=== PATIENT | female | born 1955 | race Caucasian/White ===

== ENCOUNTER 2017-03-30 06:59 | Day surgery (SDC) | payer OTHER ==
[2017-03-26 14:24] LABS: HEMATOCRIT 38.4 % (36.0-48.0); HEMOGLOBIN 12.7 g/dL (12.0-16.0)
[2017-03-26 14:52] LABS: A/G RATIO 1.2 (0.7-1.9); ALKALINE PHOSPHATASE 259 U/L (45-117); BUN (BLOOD UREA NITROGEN) 13 MG/DL (6-23); CALCIUM, SERUM 11.1 MG/DL (8.5-10.4); CHLORIDE, SERUM 106 MMOL/L (96-112); CO2 (CARBON DIOXIDE) 29 MMOL/L (24-34); CREATININE 0.78 MG/DL (0.55-1.02); GFR AFRICAN AMERICAN 95 ML/MIN (>=60); GFR NON AFRICAN AMERICAN 82 ML/MIN (>=60); GLOBULIN 3.4 G/DL (2.5-4.1); GLUCOSE, SERUM 85 MG/DL (60-99); POTASSIUM, SERUM 4.5 MMOL/L (3.5-5.3); SGOT(AST) 16 U/L (5-40); SGPT(ALT) 25 U/L (5-65); SODIUM, SERUM 138 MMOL/L (135-148); TOTAL BILIRUBIN 0.4 MG/DL (0-1.2); TOTAL PROTEIN 7.4 G/DL (6.0-8.5)
[~2017-03-30] VITALS: Ht 162.6 cm; Wt 88.7 kg
--- NOTE | ~2017-03-30 | OP ---
Record Of Operation [facility] [address] [place]. [address] NAME: PAOLA BYNUM : 55 STATUS : [facility]#: [id number] AGE: 61 ADM/REG DATE : 03/30/17 MR#: [id number] REPORT SERV DATE: 03/30/17 DICTATED BY: JOAO BLUE DATE: 03/30/17 REPORT STATUS : Draft TRANSCRIBED BY: MODL DATE: 03/30/17 DATE OF PROCEDURE: 03/30/2017 PREOPERATIVE DIAGNOSIS: Primary hyperparathyroidism. POSTOPERATIVE DIAGNOSIS: Primary hyperparathyroidism. PROCEDURE: Right superior parathyroidectomy. SURGEON: Joao Blue M.D. RESIDENT SURGEON: Orlando Nettles MD ANESTHESIA: General. COMPLICATIONS: None. ESTIMATED BLOOD LOSS: 5 mL. SPECIMENS: Right superior parathyroid gland. COMPLICATIONS: None. INDICATIONS FOR PROCEDURE: Paola Bynum is a 61-year-old woman who presented with symptoms of hypercalcemia, found to have elevated calcium and PTH level. Sestamibi suggested enlarged right-sided parathyroid gland. Ultrasounds suggest right superior parathyroid gland enlargement. The risks and benefits of the procedure including bleeding, infection, injury to the recurrent laryngeal nerve causing hoarseness, risk of anesthesia, heart attack, stroke, DVT, PE, and risk of hypocalcemia postoperatively were discussed with the patient. She understood and wished to proceed. FINDINGS: There is an enlarged right superior parathyroid gland. Normal-appearing right inferior parathyroid gland and preoperative PTH was 128. Fifteen minutes after removal of the right superior parathyroid gland, the PTH level had dropped to 28. DESCRIPTION OF PROCEDURE: Informed consent was obtained. The patient was taken to the operating room and placed on the operating room table in supine position. General endotracheal anesthesia was induced by anesthesia staff without incident. A time-out was performed verifying the correct patient, positioning, procedure, equipment. A shoulder roll was placed. The neck was extended. The patient was properly padded and secured to the table. She was then placed in modified beach chair position. The neck and upper chest were prepped and draped in sterile fashion. The initial skin crease was identified and a transverse skin incision was made with a knife carried down with electrocautery through the platysma. Subplatysmal flaps were raised superiorly and inferiorly. The strap muscles were in the midline and the right strap muscle was elevated and the thyroid was dissected off it. Right middle thyroid vein was ligated with clips and cut. The right Record Of Operation [facility] [address] [place] [address] NAME: PAOLA BYNUM : 55 STATUS : [facility] PAT#: [id number] AGE: 61 ADM/REG DATE : 03/30/17 MR#: [id number] REPORT SERV DATE: 03/30/17 DICTATED BY: JOAO BLUE DATE: 03/30/17 REPORT STATUS : Draft TRANSCRIBED BY: OSEI DATE: 03/30/17 inferior parathyroid gland was identified, and it appeared normal. Next, the right superior parathyroid gland was identified in the tracheoesophageal groove posteriorly consistent with ultrasound localization. It appeared enlarged and abnormal. The recurrent laryngeal nerve was identified and protected throughout. The right superior parathyroid gland was mobilized on its vascular pedicle. The vascular pedicle was ligated with medium clips and cut, the specimen was passed off the table. PTH was drawn 15 minutes after removal and it dropped from 128.4 down to 28. The wound was inspected, there was good hemostasis. The strap muscles were reapproximated in the midline using 3-0 running Vicryl. The platysma was closed with interrupted 4-0 Vicryl. Skin closed with running 4-0 Monocryl. Sterile dressings of Telfa and paper tape were placed. The patient tolerated the procedure and was taken to the postanesthesia care in satisfactory condition. DICTATED BY: MD HARISH Bashir/OSEI Joao Blue M.D. / [id number] CC: Joao Blue M.D.
[~2017-03-30 06:59] MED LIST: *DENIES
[2017-03-30 11:51] LABS: PTH (INTRAOPERATIVE) 128.4 PG/ML (10.0-65.0); PTH TAT 0 Hrs 21 Mins
[2017-03-30 13:13] LABS: PTH (INTRAOPERATIVE) 28.8 PG/ML (10.0-65.0); PTH TAT 0 Hrs 00 Mins
== END 2017-03-30 16:45 | disposition home or self-care (01) ==
LOC: SDC 06:59
PROVIDERS: Specialist
PROC: 0GBL0ZZ Excision of Right Superior Parathyroid Gland, Open Approach (ICD-10-PCS; principal; 2017-03-30 10:15)
DX: D35.1 Benign neoplasm of parathyroid gland (principal); Z90.710 Acquired absence of both cervix and uterus; Z98.890 Other specified postprocedural states
CPT/HCPCS: 80053; 83970; 85014; 85018; 88305; 88313; 93005; J0690; J1170; J2250; J2370; J2405; J2710; J3010